=== PATIENT | female | born 1965 | race Caucasian/White ===

== ENCOUNTER 2023-02-24 13:32 | Emergency (ER) | payer MEDICARE, MEDICAID, SELFPAY ==
--- NOTE | ~2023-02-24 | XR_ITS ---
EXAMINATION: XR CHEST CLINICAL INFORMATION: Shortness of breath. COMPARISON: None available. TECHNIQUE: 2 views of the chest were obtained. FINDINGS: Normal appearance of the cardiomediastinal silhouette. Subtle focal hazy airspace opacities projecting over the right mid to upper lung. No pleural effusion or pneumothorax. No acute osseous abnormalities. Visualized upper abdomen is within normal limits. Right upper quadrant surgical clips are seen. XR/XR chest 2V IMPRESSION: Subtle focal airspace opacities in the right mid to upper lung suggestive of early infiltrates and pneumonia. Recommend a follow-up examination after treatment to ensure resolution.
[2023-02-24 13:54] VITALS: BP 195/98; PULSE 77; RESP 19; TEMP 36.6; O2SAT 99; BMI 43.3
--- NOTE | 2023-02-24 13:57 | ED_ITS ---
HPI - General Adult General Chief complaint: Upper Respiratory Symptoms Stated complaint: sob, coughing Time Seen by Provider: 02/24/23 16:15 Source: patient, RN notes reviewed and old records reviewed Mode of arrival: ambulatory Limitations: no limitations History of Present Illness HPI narrative: 58-year-old female presents for evaluation of a cough. Patient reports cough with chest congestion for the last week. She has mild chest discomfort with coughing Denies any fevers, chills. She denies any significant shortness of breath. She has now history of asthma or COPD Denies any leg swelling She has tried [id number] cough medicine without relief She also complains of left ear pain and notes a clear drainage from left ear Related Data Previous Rx's Medication Instructions Recorded albuterol sulfate 90 mcg/actuation 2 puff inhalation Q6H PRN 02/24/23 aerosol inhaler shortness of breath or wheezing #6.7 grams azithromycin 250 mg tablet See Rx Instructions PO .COMPLEX #6 02/24/23 tabs doxycycline hyclate 100 mg tablet 100 mg PO BID #14 tabs 02/24/23 Allergies Allergy/AdvReac Type Severity Reaction Status Date / Time No Known Allergies Allergy Verified 02/24/23 13:54 Review of Systems Constitutional: Constitutional: Denies chills and Denies fever(s) ENT: Reports ear discharge and Reports otalgia Cardiovascular: Cardiovascular: Denies chest pain and Denies dyspnea Respiratory: Respiratory: Reports chest congestion, Reports cough, Denies pain on inspiration, Reports pain with cough, Denies dyspnea and Denies wheezing Gastrointestinal: Gastrointestinal: Denies abdominal pain Allergic/Immunologic: Allergic/Immunologic: Denies wheezing Physical Exam ED Vital Signs: Vital Signs - 24 hr 02/24/23 13:54 02/24/23 16:14 Temperature 98 F Pulse Rate 77 89 Respiratory Rate 19 Blood Pressure 195/98 H Pulse Oximetry 99 99 Oxygen Delivery Method Room Air Room Air BMI result Body Mass Index 43.3 Const General: healthy appearing, comfortable, no acute distress, alert and awake Nutritional Appearance: well nourished Orientation/consciousness: patient oriented x3 HENMT Other: Mild bilateral cerumen buildup without evidence of or inflammation, edema no foreign body. Head: Yes normocephalic and Yes atraumatic Ears: TM's normal bilaterally Throat: Yes posterior oropharynx normal Eyes Eyelids: Yes eyelids normal Conjunctivae: conjunctivae normal Sclerae: sclerae normal Corneas: corneas normal Pupils: Equal, round and reactive pupils present EOM: EOMs intact bilaterally Neck Neck: Yes full ROM Resp Effort & Inspection: normal respiratory effort, able to speak in complete sentences, no audible wheezes and not labored Auscultation: clear to auscultation bilaterally Cardio Rate: regular rate Rhythm: regular rhythm Skin General skin exam: elasticity normal Neuro General: patient oriented x3 Cranial nerves: Yes Equal, round and reactive pupils present and Yes Bilaterally intact EOM present Cognition (Neuro): normal cognition Extrem Other: Moving all extremities well without any obvious deformities Course Course Course Narrative: RME- 58 year old female presents for evaluation of cough, congestion, shortness of breath and left ear pain. Plan for chest x-ray and a covid test Medical Decision Making Medical Decision Making [facility] Narrative: 58-year-old female presents for evaluation cough. She has a subtle right upper lobe infiltrate on exam. She has no risk factors for severe disease. Will discharge the patient with doxycycline and azithromycin. Her oxygen saturation is 99% on room air. I do not see any indication for further emergent workup at this time Differential Diagnosis Differential Diagnoses: The differential diagnosis associated with the presentation includes Pneumonia Bronchitis Upper respiratory infection Viral syndrome Admission/Observation Consideration of admission/observation: Escalation of care including admission/observation considered He patient's oxygen saturation is 99% room air. She is not septic or in any respiratory distress, therefore she was not presented for admission. Lab Data Labs: Lab Results 02/24/23 Range/Units 14:52 COVID-19 (ANIKET) Negative (Negative) COVID-19 Clin Com See Note Independent Interpretation I performed an independent interpretation of an: Plain X-Ray (Right upper lobe infiltrate) Radiology Impression Discussion of test interpretation with radiology: I have reviewed the radiologist's reading. Radiologist Impression: Subtle focal airspace opacities in the right mid to upper lung suggestive of early infiltrates and pneumonia. Discharge Plan Discharge Clinical Impression: Community acquired pneumonia Patient Disposition: Home, Self-Care Instructions: Community Acquired Pneumonia (ED) Additional Instructions: Your x-ray showed a subtle pneumonia in your right mid to upper lung Take both antibiotics as prescribed. You may use the albuterol inhaler as needed for shortness of breath/wheezing You may tack picker [id number] Debrox drops to help decrease the amount of earwax and years Prescriptions: New azithromycin 250 mg tablet See Rx Instructions .ROUTE .COMPLEX Qty: 6 0RF Rx Instructions: For 250 mg dose pack: take 500 mg today (day 1), then 250 mg for 4 days (days 2-5) doxycycline hyclate 100 mg tablet 100 mg PO BID Qty: 14 0RF albuterol sulfate 90 mcg/actuation HFA aerosol inhaler 2 puff inhalation Q6H PRN (Reason: shortness of breath or wheezing) Qty: 6.7 0RF
[2023-02-24 15:11] LABS: COVID-19 Test Negative (Negative); IDNOW Serial# 9DB6401D
[2023-02-24 16:14] VITALS: PULSE 89; O2SAT 99
== END 2023-02-24 16:42 | disposition home or self-care (01) ==
PROVIDERS: Physician Assistant; Emergency Provider Student in an Organized Health Care Education/Training Program; PCP Internal Medicine
DX: J18.8 Other pneumonia, unspecified organism (principal); R06.02 Shortness of breath; Z11.52 Encounter for screening for COVID-19
CPT/HCPCS: 71046; 87635; 99282; 99283

== ENCOUNTER 2023-04-23 07:58 | Emergency (ER) | payer MEDICARE, MEDICAID, SELFPAY ==
--- NOTE | ~2023-04-23 | XR_ITS ---
EXAMINATION: XR CHEST CLINICAL INFORMATION: Shortness of breath COMPARISON: Previous chest x-ray most recent February 2023 TECHNIQUE: 2 views of the chest were obtained. FINDINGS: No significant abnormality is noted involving the heart, lungs, mediastinum, bony thorax or soft tissues. XR/XR chest 2V IMPRESSION: Unremarkable examination.
--- NOTE | 2023-04-23 08:13 | ECG_ITS ---
Test Reason : CHEST PAIN Blood Pressure : / mmHG Vent. Rate : 068 BPM Atrial Rate : 068 BPM P-R Int : 172 ms QRS Dur : 064 ms QT Int : 368 ms P-R-T Axes : 007 000 009 degrees QTc Int : 391 ms Normal sinus rhythm Nonspecific ST and T wave abnormality Low voltage QRS Borderline ECG No previous ECGs available Referred By: An Garza Electronically Signed By:ELIS EMANUEL
--- NOTE | 2023-04-23 08:14 | ED_ITS ---
HPI - SOB/Dyspnea General Chief Complaint: Upper Respiratory Symptoms Stated Complaint: diff breathing quest pneumonia Time Seen by Provider: 04/23/23 08:05 Source: patient Mode of arrival: ambulatory Limitations: no limitations History of Present Illness HPI Narrative: Patient is a 58-year-old female who presents emergency department for evaluation of shortness of breath/difficulty breathing in addition to chest tightness of productive cough. A tightness in her chest is there constantly and is felt diffusely across the anterior chest. She reports approximately 1 month ago she was diagnosed with pneumonia in received treatment with azithromycin. She reports improvement in her symptoms. However over the past week she began feeling worse again. She did attempt to use the inhaler she was previously prescribed which she does state it gave her some relief from her shortness of breath. She does state that her daughter has been ill for the past week with upper respiratory symptoms as well. She denies fevers, chills, numbness or tingling of the extremities Related Data Previous Rx's Medication Instructions Recorded albuterol sulfate 90 mcg/actuation 2 puff inhalation Q6H PRN 02/24/23 aerosol inhaler shortness of breath or wheezing #6.7 grams azithromycin 250 mg tablet See Rx Instructions PO .COMPLEX #6 02/24/23 tabs doxycycline hyclate 100 mg tablet 100 mg PO BID #14 tabs 02/24/23 azithromycin 250 mg tablet See Rx Instructions PO .COMPLEX #6 04/23/23 tabs guaifenesin 1,200 mg tablet, 1,200 mg PO Q12H #14 tabs 04/23/23 extended release 12 hr (Mucinex) Allergies Allergy/AdvReac Type Severity Reaction Status Date / Time No Known Allergies Allergy Verified 02/24/23 13:54 Review of Systems 2 Review of Systems: Yes all other systems are reviewed and are negative [facility] Past Medical History Attestation statement: The following information was validated with the patient. Source: old records reviewed Social History Social History Smoked in Last 30 Days: No Use of substances other than those prescribed or required for medical reasons: No Advance Directives: No Advance Directives Information Provided: No Physical Exam 2 Vital Signs: Vital Signs: Last Vital Signs Temp 98.3 F 04/23/23 08:16 Pulse 72 04/23/23 09:10 Resp 20 04/23/23 09:10 BP 127/87 04/23/23 09:10 Pulse Ox 95 12/09/23 09:10 O2 Del Method Room Air 04/23/23 09:10 BMI result Body Mass Index 40.7 Appearance: Alert.?Oriented to person, place and time. No acute distress.?Normal affect. Eyes: Pupils equal, round and reactive to light.? ENT: Pharynx normal.?? Neck: Normal inspection.? Neck supple.?? CVS: Heart sounds normal. Normal heart rate and rhythm.? Pulses normal.?? Respiratory: No respiratory distress.? Lung sounds with mild rales to the left lower lobe, otherwise clear to auscultation bilaterally Abdomen: Soft and non-tender. Normoactive bowel sounds. ? Skin: Skin warm and dry.? Normal skin color.? Extremities: No lower extremity edema.? No calf ttp? Neuro: Moves all extremities spontaneously. Sensation intact bilaterally. No focal neuro deficits. Ambulates with normal steady gait. Medical Decision Making Medical Decision Making MDM Narrative: Patient is a 58-year-old female with no reported past medical history presents emergency department for evaluation of shortness of breath cough and chest tightness as per HPI. She was seen in the emergency department 02/24/2023 and diagnosed with pneumonia for which she was treated with azithromycin and doxycycline in addition to an albuterol inhaler. Overall she is well-appearing, nontoxic, afebrile. She is without tachypnea hypoxia or respiratory distress. She has mild rales in the left lower lobe otherwise her lungs sounds are clear to auscultation bilaterally. A tightness in her chest is constant in nature, I suspect this is most likely secondary to costochondritis. Will obtain CBC to evaluate for leukocytosis/ anemia, CMP to evaluate for abnormal electrolytes /abnormal renal function/ abnormal hepatic/biliary function, EKG and troponin to evaluate for ischemia/ACS. Chest x-ray to evaluate for consolidation/ infiltrate to suggest recurrent or worsening pneumonia. Labs overall unremarkable, EKG revealing normal sinus rhythm with negative troponin, likely ACS. Chest x-ray without acute cardiopulmonary process. At this time stable for discharge home, outpatient follow-up with primary care provider, OTC pain management costochondritis, continued use of albuterol inhaler and prescription for azithromycin for management of bronchitis. Differential Diagnosis Differential Diagnoses: The differential diagnosis associated with the presentation includes (As noted above) Admission/Observation Consideration of admission/observation: Escalation of care including admission/observation considered (See narrative above and course narrative for further details) Lab Data MDM Lab Attestation statement: I reviewed the patient's lab results. CBC is without leukocytosis or anemia. CMP is unremarkable. High sensitive troponin below detectable levels. COVID-19 and influenza testing are negative. 04/23/23 08:48 04/23/23 08:48 Labs: Lab Results 04/23/23 Range/Units 08:48 WBC 8.1 (4.8-10.8) X10*3/uL RBC 4.44 (4.20-5.50) X10*6/uL Hgb 13.4 (12.0-16.0) g/dl Hct 40.3 (37.0-47.0) % MCV 90.8 (80.0-98.0) fL MCH 30.2 (27.0-33.0) pg MCHC 33.3 (31.0-35.0) g/dl RDW 12.4 (11.0-16.0) % Plt Count 291 (160-400) X10*3/uL MPV 8.7 L (9.4-12.3) fL Immature Gran % (Auto) 0.2 (0.0-0.4) % Neut % (Auto) 62.5 (45-73) % Lymph % (Auto) 23.5 (20-40) % [place] % (Auto) 6.8 (2-11) % Eos % (Auto) 6.3 H (0-4) % Baso % (Auto) 0.7 (0-2) % Lymph # (Auto) 1.9 (1.2-4.9) X10*3/uL [place] # (Auto) 0.6 (0.1-1.2) X10*3/uL Eos # (Auto) 0.5 H (0.0-0.4) X10*3/uL Baso # (Auto) 0.1 (0.0-0.2) X10*3/uL Abs Immat Gran (auto) 0.02 (0.00-0.03) X10*3/uL Absolute Neuts (auto) 5.1 (2.0-8.3) x10*3/uL Absolute Nucleated RBC 0.000 (0.0-0.012) X10*3/uL Nucleated RBC % (auto) 0.0 (0.0-0.2) /100WBC PT 11.7 (11.1-13.3) SEC INR 1.0 (0.9-1.1) Sodium 142 (135-145) mmol/L Potassium 4.1 (3.3-5.1) mmol/L Chloride 107 (96-108) mmol/L Carbon Dioxide 24 (22-29) mmol/L Anion Gap 15 (12-20) BUN 14 (9-16) mg/dL Creatinine 0.77 (0.5-1.4) mg/dL Estim Creat Clear Calc 89.7 Estimated GFR > 60 Random Glucose 110 (60-115) mg/dL Calcium 9.2 (8.4-10.2) mg/dL Total Bilirubin 0.5 (0.0-1.0) mg/dL AST 25 (5-31) U/L ALT 28 (0-31) U/L Alkaline Phosphatase 90 (39-117) U/L Troponin I High Sens < 2.7 (<3.5-17.0) ng/L Total Protein 7.6 (6.5-8.0) g/dL Albumin 4.0 (3.5-5.0) g/dL COVID-19 (ANIKET) Negative (Negative) COVID-19 Clin Com See Note Influenza Type A (IGOR) Negative (Negative) Influenza Type B (IGOR) Negative (Negative) Influenza A & B Note See Note Independent Interpretation I performed an independent interpretation of an: EKG and Plain X-Ray (I personally interpreted chest x-ray and agree with radiologist impression.) Interpretation: Rate: Normal sinus rhythm Rhythm:? 68 [place]:? Normal Normal P waves.? Normal ROSLYN.?? Normal QRS complex.?? ST T wave :??No ST elevation, no ST depression [id number] The study has been interpreted contemporaneously by me. Radiology Impression Discussion of test interpretation with radiology: I have reviewed the radiologist's reading. Radiologist Impression: XR/XR chest 2V IMPRESSION: Unremarkable examination. Independent Historian Clinical information obtained from an independent historian. History obtained from or confirmed by: Spouse Prescription Management I considered prescription management with: Antibiotic Discharge Plan Discharge Clinical Impression: Bronchitis Patient Disposition: Home, Self-Care Instructions: Acute Bronchitis (ED) Additional Instructions: Your chest x-ray today does not show any evidence of pneumonia. Please continue to the albuterol inhaler as needed for shortness of breath. You can take ibuprofen 200 mg, 3 tablets (600mg) every 6-8 hours as needed for pain, in addition to Tylenol 500 mg, 2 tablets (1,000mg) every 4-6 hours as needed for pain, but not to exceed 3 doses daily (3,000mg).? I have sent a prescription for azithromycin to your pharmacy, please complete this entire course You may return back to emergency department any new or worsening symptoms or concerns. Prescriptions: New azithromycin 250 mg tablet See Rx Instructions .ROUTE .COMPLEX Qty: 6 0RF Rx Instructions: For 250 mg dose pack: take 500 mg today (day 1), then 250 mg for 4 days (days 2-5) guaifenesin [Mucinex] 1,200 mg tablet extended release 12hr 1,200 mg PO Q12H Qty: 14 0RF No Action azithromycin 250 mg tablet See Rx Instructions .ROUTE .COMPLEX Qty: 6 0RF Rx Instructions: For 250 mg dose pack: take 500 mg today (day 1), then 250 mg for 4 days (days 2-5) doxycycline hyclate 100 mg tablet 100 mg PO BID Qty: 14 0RF albuterol sulfate 90 mcg/actuation HFA aerosol inhaler 2 puff inhalation Q6H PRN (Reason: shortness of breath or wheezing) Qty: 6.7 0RF Referrals: Travis Henderson MD [Primary Care Provider] -
[2023-04-23 08:16] VITALS: BP 151/98; PULSE 94; RESP 18; TEMP 36.8; O2SAT 100; BMI 40.7
[2023-04-23 08:52] LABS: MANUAL DIFF FLAG NO
[2023-04-23 08:54] LABS: Basophils Absolute Auto 0.1 X10*3/uL (0.0-0.2); Basophils Percent Auto 0.7 % (0-2); Eosinophils Absolute Auto 0.5 X10*3/uL (0.0-0.4); Eosinophils Percent Auto 6.3 % (0-4); Hematocrit 40.3 % (37.0-47.0); Hemoglobin 13.4 g/dl (12.0-16.0); Imm Gran Abs Auto 0.02 X10*3/uL (0.00-0.03); Imm Gran Pct Auto 0.2 % (0.0-0.4); Lymphocytes Absolute Auto 1.9 X10*3/uL (1.2-4.9); Lymphocytes Percent Auto 23.5 % (20-40); Mean Corpuscular HGB Conc 33.3 g/dl (31.0-35.0); Mean Corpuscular Hemoglobin 30.2 pg (27.0-33.0); Mean Corpuscular Volume 90.8 fL (80.0-98.0); Mean Platelet Volume 8.7 fL (9.4-12.3); Monocytes Absolute Auto 0.6 X10*3/uL (0.1-1.2); Monocytes Percent Auto 6.8 % (2-11); Neutrophils Absolute Auto 5.1 x10*3/uL (2.0-8.3); Neutrophils Percent Auto 62.5 % (45-73); Platelet Count 291 X10*3/uL (160-400); Red Blood Count 4.44 X10*6/uL (4.20-5.50); Red Cell Distribution Width 12.4 % (11.0-16.0); White Blood Count 8.1 X10*3/uL (4.8-10.8)
--- NOTE | 2023-04-23 08:55 | PC.NURSE ---
pt a&o x4, pleasant, calm, and cooperative. pt has constant coughing attacks. states she feels tight in her lungs/chest. 20G IV placed to right forearm, labs drawn and sent. pt resting quietly on stretcher in no apparent distress. call lester within pt reach. rr even/unlabored. plan of care ongoing.
[2023-04-23 09:02] LABS: Prothrombin Time 11.7 SEC (11.1-13.3)
[2023-04-23 09:08] LABS: Alanine Aminotransferase 28 U/L (0-31); Alkaline Phosphatase 90 U/L (39-117); Anion Gap 15 (12-20); Aspartate Amino Transferase 25 U/L (5-31); Bilirubin Total 0.5 mg/dL (0.0-1.0); Blood Urea Nitrogen 14 mg/dL (9-16); COVID-19 Test Negative (Negative); Calcium 9.2 mg/dL (8.4-10.2); Carbon Dioxide 24 mmol/L (22-29); Chloride 107 mmol/L (96-108); Creatinine Clr Calc Pharmacy 89.7; Estimated Glomerular Filt Rate > 60; Glucose Random 110 mg/dL (60-115); IDNOW Serial# 08D9AD1C; Potassium 4.1 mmol/L (3.3-5.1); Sodium 142 mmol/L (135-145); Total Protein 7.6 g/dL (6.5-8.0)
[2023-04-23 09:10] VITALS: BP 127/87; PULSE 72; RESP 20; O2SAT 95
[2023-04-23 09:15] LABS: Troponin-I High Sensitivity < 2.7 ng/L (<3.5-17.0)
[2023-04-23 09:23] LABS: IDNOW Serial# 6674DD1D; Influenza A Negative (Negative); Influenza B2 Negative (Negative)
== END 2023-04-23 10:00 | disposition home or self-care (01) ==
PROVIDERS: Nurse Practitioner Family; Emergency Provider Emergency Medicine Emergency Medical Services; PCP Internal Medicine
DX: J40 Bronchitis, not specified as acute or chronic (principal); R07.9 Chest pain, unspecified; R05.9 Cough, unspecified; R06.02 Shortness of breath; Z11.52 Encounter for screening for COVID-19
CPT/HCPCS: 71046; 80053; 84484; 85025; 85610; 87502; 87635; 93005; 99284

== ENCOUNTER → 2023-04-23 08:13 | Outpatient (BNV) | payer MEDICARE, MEDICAID, SELFPAY | PROVIDERS: Emergency Provider Emergency Medicine Emergency Medical Services; PCP Internal Medicine; Visit Provider Internal Medicine | DX: R07.9 Chest pain, unspecified (principal) | CPT/HCPCS: 93010 ==

== ENCOUNTER 2023-05-10 18:07 | Emergency (ER) | payer MEDICARE, MEDICAID, SELFPAY ==
--- NOTE | ~2023-05-10 | XR_ITS ---
EXAMINATION: XR CHEST CLINICAL INFORMATION: Cough. Recurrent pneumonia. COMPARISON: Previous chest x-ray 04/23/2023 TECHNIQUE: 2 views of the chest were obtained. FINDINGS: No significant abnormality is noted involving the heart, lungs, mediastinum, bony thorax or soft tissues. XR/XR chest 2V IMPRESSION: Unremarkable examination.
[2023-05-10 18:27] VITALS: BP 149/85; PULSE 101; RESP 20; TEMP 35.8; O2SAT 92; BMI 48.1
--- NOTE | 2023-05-10 18:30 | ED.GENADULT ---
HPI - General Adult General Chief complaint: Upper Respiratory Symptoms Stated complaint: Cough Time Seen by Provider: 05/11/23 00:46 Source: patient Mode of arrival: ambulatory Limitations: no limitations History of Present Illness HPI narrative: 58 yo female here for eval of nasal congestion, cough productive of yellow sputum x2 weeks. Associated decreased PO intake and generalized weakness. No documented fever at home. Reports feeling chills starting 3 days ago. Reports coughing fit last night with 1 episode of posttussive emesis that was black in color had bowel movement today which was brown with no blood. Patient did not have any more episode of vomiting. Daughter at home is positive for flu. Related Data Previous Rx's Medication Instructions Recorded albuterol sulfate 90 mcg/actuation 2 puff inhalation Q6H PRN 02/24/23 aerosol inhaler shortness of breath or wheezing #6.7 grams azithromycin 250 mg tablet See Rx Instructions PO .COMPLEX #6 02/24/23 tabs doxycycline hyclate 100 mg tablet 100 mg PO BID #14 tabs 02/24/23 albuterol sulfate 90 mcg/actuation 2 puff inhalation Q4-6H PRN 04/23/23 aerosol inhaler shortness of breath or wheezing #6.7 grams azithromycin 250 mg tablet See Rx Instructions PO .COMPLEX #6 04/23/23 tabs guaifenesin 1,200 mg tablet, 1,200 mg PO Q12H #14 tabs 04/23/23 extended release 12 hr (Mucinex) omeprazole 40 mg capsule,delayed 40 mg PO DAILY #14 caps 05/11/23 release Allergies Allergy/AdvReac Type Severity Reaction Status Date / Time No Known Allergies Allergy Verified 02/24/23 13:54 Review of Systems Review of Systems: all other systems are reviewed and are negative Constitutional: Reports as per HPI and Reports no additional constitutional complaints Eyes: Reports as per HPI and Reports no additional eye complaints Reports system reviewed and no additional complaints, except as documented Cardiovascular: Reports as per HPI and Reports no additional cardiovascular complaints Respiratory: Reports as per HPI and Reports no additional respiratory complaints Gastrointestinal: Reports as per HPI and Reports no additional gastrointestinal complaints Genitourinary: Reports no additional female genitourinary complaints Musculoskeletal: Reports no additional musculoskeletal complaints Skin/Breast: Reports system reviewed and no additional complaints, except as docu Psychiatric: Reports no additional psychiatric complaints Endocrine: Reports no additional endocrine complaints Hematologic/Lymphatic: Reports no additional hematologic/lymphatic complaints Allergic/Immunologic: Reports no additional allergic/immunologic complaints Reports system reviewed and no additional complaints, except as documented and Reports Abnormal speech present [facility] Social History Social History Advance Directives: No Advance Directives Information Provided: No Physical Exam ED Vital Signs: Vital Signs - 24 hr 05/10/23 18:27 Temperature 96.5 F L Pulse Rate 101 H Respiratory Rate 20 Blood Pressure 149/85 H Pulse Oximetry 92 Oxygen Delivery Method Room Air BMI result Body Mass Index 48.1 Vital signs have been reviewed and appear to be correct. Blood pressure elevated. Heart rate elevated. Respiratory rate normal. Temperature normal. Oxygen saturation normal. Appearance: Alert. Oriented X3. No acute distress. Head: Normal external exam. Normocephalic. Atraumatic. No Samuels signs noted. No raccoon eyes noted Eyes: PERRLA. EOMI. Conjunctiva and sclera normal. Eyelids normal. ENT: TM's Normal. Pharynx normal. Uvula midline. Moist mucous membranes. No trismus noted. No drooling noted. No muffled voice noted. Neck: Normal inspection. Neck supple. FROM. No adenopathy. Thyroid Normal. No meningeal signs. No neck mass noted. CVS: Normal heart rate and rhythm. Heart sound normal. No murmurs noted. Pulses normal throughout. Respiratory: No respiratory distress. Painless inspiration. Breath sounds normal. No wheezes/rales/rhonchi noted. Chest nontender. No accessory muscle usage noted or decreased air movement noted. Abdomen: Soft and nontender. Bowel sounds normal in all 4 quadrants. No distention noted. No organomegaly noted. No visible injury noted. Back: No CVA tenderness. Full range of motion noted. Skin: Skin warm and dry. Normal skin color. Normal skin turgor. No rashes/lesions/lacerations noted. Extremities: No lower extremity edema. Extremities exhibit normal range of motion. Extremities nontender. Neuro: Oriented X 3. Cranial nerve exam: II-XII are grossly intact No motor deficit. No sensory deficit. Reflexes normal. Course Course Course Narrative: RME:? Plan for serology. and CXR. Full HPI, ROS and PE to be performed by the primary ED provider. Reevaluation(s) Reevaluation #1: Flu positive. Patient has been having thick sputum that make the patient gag and vomit patient had a black vomit time 1 earlier today otherwise patient has been eating and drinking with normal stool no blood , Stable vital signs and CBC. Will start the patient on Prilosec and follow up with GI Follow-up. Time: 01:41 Medical Decision Making Differential Diagnosis Differential Diagnoses: The differential diagnosis associated with the presentation includes ( Pneumonia, pneumothorax, influenza, RSV, COVID-19 infection, electrolyte abnormality, severe anemia.) Admission/Observation Consideration of admission/observation: Escalation of care including admission/observation considered Lab Data [facility] Lab Attestation statement: I reviewed the patient's lab results. 05/10/23 18:41 05/10/23 18:41 Labs: Lab Results 05/10/23 Range/Units 18:41 WBC 6.4 (4.8-10.8) X10*3/uL RBC 4.55 (4.20-5.50) X10*6/uL Hgb 13.7 (12.0-16.0) g/dl Hct 41.3 (37.0-47.0) % MCV 90.8 (80.0-98.0) fL MCH 30.1 (27.0-33.0) pg MCHC 33.2 (31.0-35.0) g/dl RDW 12.4 (11.0-16.0) % Plt Count 242 (160-400) X10*3/uL MPV 9.1 L (9.4-12.3) fL Immature Gran % (Auto) 0.3 (0.0-0.4) % Neut % (Auto) 70.5 (45-73) % Lymph % (Auto) 20.5 (20-40) % Millard % (Auto) 8.4 (2-11) % Eos % (Auto) 0.0 (0-4) % Baso % (Auto) 0.3 (0-2) % Lymph # (Auto) 1.3 (1.2-4.9) X10*3/uL Millard # (Auto) 0.5 (0.1-1.2) X10*3/uL Eos # (Auto) 0.0 (0.0-0.4) X10*3/uL Baso # (Auto) 0.0 (0.0-0.2) X10*3/uL Abs Immat Gran (auto) 0.02 (0.00-0.03) X10*3/uL Absolute Neuts (auto) 4.5 (2.0-8.3) x10*3/uL Absolute Nucleated RBC 0.000 (0.0-0.012) X10*3/uL Nucleated RBC % (auto) 0.0 (0.0-0.2) /100WBC Sodium 139 (135-145) mmol/L Potassium 3.5 (3.3-5.1) mmol/L Chloride 99 (96-108) mmol/L Carbon Dioxide 29 (22-29) mmol/L Anion Gap 15 (12-20) BUN 10 (9-16) mg/dL Creatinine 0.88 (0.5-1.4) mg/dL Estim Creat Clear Calc 89.7 Estimated GFR > 60 Random Glucose 119 H (60-115) mg/dL Calcium 9.0 (8.4-10.2) mg/dL Magnesium 2.1 (1.6-2.6) mg/dL Influenza Type A (PCR) POSITIVE A (Negative) Influenza Type B (PCR) NEGATIVE (Negative) RSV RNA Qual (PCR) NEGATIVE (Negative) SARS-CoV-2 RNA (RT-PCR) NEGATIVE (Negative) Independent Interpretation I performed an independent interpretation of an: Plain X-Ray ( Chest: No acute intrathoracic pathology.) Radiology Impression Discussion of test interpretation with radiology: I have reviewed the radiologist's reading. Discharge Plan Discharge Clinical Impression: Influenza A, Gastritis Patient Disposition: Home, Self-Care Instructions: Influenza (ED) Additional Instructions: drink plenty of fluids, wear face mask at all times, keep social distance, frequent hand wash parent. Take [id number] Tylenol and/or ibuprofen if needed for fever or body ache. Prescriptions: New omeprazole 40 mg capsule,delayed release(DR/EC) 40 mg PO DAILY Qty: 14 0RF No Action azithromycin 250 mg tablet See Rx Instructions .ROUTE .COMPLEX Qty: 6 0RF Rx Instructions: For 250 mg dose pack: take 500 mg today (day 1), then 250 mg for 4 days (days 2-5) doxycycline hyclate 100 mg tablet 100 mg PO BID Qty: 14 0RF albuterol sulfate 90 mcg/actuation HFA aerosol inhaler 2 puff inhalation Q6H PRN (Reason: shortness of breath or wheezing) Qty: 6.7 0RF azithromycin 250 mg tablet See Rx Instructions .ROUTE .COMPLEX Qty: 6 0RF Rx Instructions: For 250 mg dose pack: take 500 mg today (day 1), then 250 mg for 4 days (days 2-5) guaifenesin [Mucinex] 1,200 mg tablet extended release 12hr 1,200 mg PO Q12H Qty: 14 0RF albuterol sulfate 90 mcg/actuation HFA aerosol inhaler 2 puff inhalation Q4-6H PRN (Reason: shortness of breath or wheezing) Qty: 6.7 0RF Referrals: Kevin Fang MD [Physician] -
[2023-05-10 18:51] LABS: MANUAL DIFF FLAG NO
[2023-05-10 18:57] LABS: Basophils Percent Auto 0.3 % (0-2); Hematocrit 41.3 % (37.0-47.0); Hemoglobin 13.7 g/dl (12.0-16.0); Imm Gran Abs Auto 0.02 X10*3/uL (0.00-0.03); Imm Gran Pct Auto 0.3 % (0.0-0.4); Lymphocytes Absolute Auto 1.3 X10*3/uL (1.2-4.9); Lymphocytes Percent Auto 20.5 % (20-40); Mean Corpuscular HGB Conc 33.2 g/dl (31.0-35.0); Mean Corpuscular Hemoglobin 30.1 pg (27.0-33.0); Mean Corpuscular Volume 90.8 fL (80.0-98.0); Mean Platelet Volume 9.1 fL (9.4-12.3); Monocytes Absolute Auto 0.5 X10*3/uL (0.1-1.2); Monocytes Percent Auto 8.4 % (2-11); Neutrophils Absolute Auto 4.5 x10*3/uL (2.0-8.3); Neutrophils Percent Auto 70.5 % (45-73); Platelet Count 242 X10*3/uL (160-400); Red Blood Count 4.55 X10*6/uL (4.20-5.50); Red Cell Distribution Width 12.4 % (11.0-16.0); White Blood Count 6.4 X10*3/uL (4.8-10.8)
[2023-05-10 19:25] LABS: Anion Gap 15 (12-20); Blood Urea Nitrogen 10 mg/dL (9-16); Carbon Dioxide 29 mmol/L (22-29); Chloride 99 mmol/L (96-108); Creatinine Clr Calc Pharmacy 89.7; Estimated Glomerular Filt Rate > 60; Glucose Random 119 mg/dL (60-115); Magnesium 2.1 mg/dL (1.6-2.6); Potassium 3.5 mmol/L (3.3-5.1); Sodium 139 mmol/L (135-145)
[2023-05-10 19:39] LABS: Influenza A PCR POSITIVE (Negative); Influenza B PCR NEGATIVE (Negative); Resp Syncy Virus RNA Qual PCR NEGATIVE (Negative); SARS COV2 PCR INHOUSE NEGATIVE (Negative)
--- OUTSIDE RECORDS SUMMARY | 2023-05-11 00:50 | XMS_ITS | Continuity of Care Document ---
Author Name Unknown Organization [facility] ter Address [address] [place] [id number]- Care Team Providers Care Copy Director Name Role Phone Travis Henderson MD Primary Care Physician [place] [facility] [place]/20 - 05/18/[address] [address] Attending Physician: Christi Davidson NP Admitting Physician: Stuart DIAZ, Christi Blair Referring Physician: Christi Davidson NP Allergies, Adverse Reactions, Alerts Substance Reaction Severity Status NKA Active Medications Azithromycin 250, By Mouth, Daily, 0 Refills, Maintenance Start Date: 05/01/11 Status: Ordered Coumadin 2.5 mg oral tablet 2.5, mg, 1, tablet, By Mouth, Daily, 0, 0, 06/07/05 17:21:36, 2401, Constant Indicator Start Date: 06/07/05 Status: Ordered Gabapentin = 300 mg, By Mouth, 2 times a day, 0 Refills, Maintenance Start Date: 05/01/11 Status: Ordered Percocet-5 Tablet 1-2 tabs, By Mouth, Every 4 hours, 75, tablet, 0, 0, 07/15/05 17:05:33, Print ALDO Number, ADS [facility], [address] [place] [address] [place] [address], 51, Constant Indicator Start Date: 07/15/05 Stop Date: 07/22/05 Status: Ordered Vicodin 500 mg-5 mg oral tablet 1, tablet, By Mouth, Every 4 hours, 0, 0, 06/07/05 17:57:06, Print ALDO Number, 51, Constant Indicator Start Date: 06/07/05 Status: Ordered Zofran ODT 4 mg oral tablet, disintegrating 1 tablet = 4 mg, By Mouth, 3 times a day, # 9 tablet, 0 Refills, Maintenance, 01/06/19 3:06:05 EDT Start Date: 01/06/19 Stop Date: 01/09/19 Status: Ordered Zoloft Tablet By Mouth, Daily, 0 Refills, Maintenance Start Date: 03/15/12 Status: Ordered Problem List Condition Effective Dates Status Health Status Inform ant Morbid Obesity(Confirmed) Active Social History Social History Type Response Smoking Status Never smoker entered on: 01/05/16 Sex Female
--- OUTSIDE RECORDS SUMMARY | 2023-05-11 00:50 | XMS_ITS | Continuity of Care Document ---
Author Name Unknown Organization [facility] ter Address [address] [place] [address]- Care Team Providers Care [employer]umber [employer] Offbearer Name Role Phone Ro Travis ABBOTT Primary Care Physician [phone] Encounter [facility] [place] Date(s): 02/19/20 - 02/19/[address] [address] [facility] Discharge Disposition: A-D/C Walkout Attending Physician: Not on Staff, Attending MD Admitting Physician: Not on Staff, Admitting MD Referring Physician: Not on Staff, Referring MD Allergies, Adverse Reactions, Alerts Substance Reaction Severity [...] 0, 07/15/05 17:05:33, Print ALDO Number, ADS [facility], [address] [place] [address] [address] [place] [address], 51, Constant Indicator Start Date: 07/15/05 Stop [...] Health Status Inform ant Morbid Obesity(Confirmed) Active Vital Signs Most recent to oldest [Reference Range]: 1 Height 159 cm (02/19/20 6:48 PM) Oxygen Saturation [94-100 %] 99 % (02/19/20 6:46 PM) Pulse Rate [55-90 bpm] 86 bpm (02/19/20 6:46 PM) Mode of Delivery (Oxygen) Room air (02/19/20 6:46 PM) Social History Social History Type Response Smoking Status Never smoker entered on: 01/05/16 Sex Female
--- OUTSIDE RECORDS SUMMARY | 2023-05-11 00:50 | XMS_ITS | Continuity of Care Document ---
Author Name Unknown Organization [facility] ter Address [address] [place] [address]- Care Team Providers Care Ripsaw Matcher Name Role Phone Travis Henderson MD Primary Care Physician Encounter [facility] [place] Date(s): 02/20/20 - 03/21/[address] [address] Attending Physician: Christi Davidson NP Admitting [...] 0, 07/15/05 17:05:33, Print ALDO Number, ADS [facility], [address] [place] [address] [place] [address], 51, Constant Indicator Start Date: 07/15/05 Stop [...]
--- OUTSIDE RECORDS SUMMARY | 2023-05-11 00:50 | XMS_ITS | Continuity of Care Document ---
Author Name Unknown Organization [facility] ter Address [address] [place] [address]- Care Team Providers Care Clinic Lead Name Role Phone Travis Henderson MD Primary Care Physician [phone] Encounter [facility] [place] Date(s): 03/15/20 - 04/24/[address] [address] Attending Physician: Christi Davidson NP Admitting Physician: [...] 0, 07/15/05 17:05:33, Print ALDO Number, ADS [facility], [address] [place] [address] [place] [address], 51, Constant Indicator Start Date: 07/15/05 Stop [...]
--- NOTE | 2023-05-11 02:07 | PC.NURSE ---
Pt is a pleasant 58 y/o female who presents for worsening shortness of breath over the past 2 weeks. No fever reported. Has an occasional dry cough. No other complaints reported at this time.
== END 2023-05-11 02:14 | disposition home or self-care (01) ==
PROVIDERS: Physician Assistant Medical; Emergency Provider Emergency Medicine
DX: J10.1 Influenza due to other identified influenza virus with other respiratory manifestations (principal); K29.70 Gastritis, unspecified, without bleeding; Z20.822 Contact with and (suspected) exposure to COVID-19; Z20.828 Contact with and (suspected) exposure to other viral communicable diseases
CPT/HCPCS: 0241U; 36415; 71046; 80048; 83735; 85025; 99281; 99283